=== PATIENT | male | born 1970 | race Caucasian/White ===

== ENCOUNTER 2021-11-13 21:53 | Inpatient (IN) | payer BC ==
[~2021-11-13] VITALS: Ht 170.2 cm; Wt 112.7 kg
--- NOTE | 2021-11-13 22:00 | NUR ---
Pt brought straight back to room ED1A via waiting room due to CC of CP mod to severe. Pt states he had a stent placed 2 wks ago at [facility] Addendum: 11/14/21 at 0055 by DIEGONISHCORINNE Pt immediately placed on [facility] in room ED1 and connected to bedside monitor, inital vs optained. Initial VSS, SBP slighly elevated at 142/98, 100%RA, 83bpm,16rpm. NSR without ectopy on the monitor. Normal s1s2, RRR, good distal pulses x4ext. Good metal base blocker strength. Denies sob, dizziness, n/v. No s/sxof distress present.
[2021-11-13] MEDS ORDERED: MORPHINE SULFATE 2 MG/1 ML DISP.SYRIN IV ONE (22:45)
--- NOTE | 2021-11-13 22:50 | NUR ---
CALLED [facility] DR. WILLARD PAGED.
[2021-11-13 22:54] LABS: HEMATOCRIT 37.3 % (36.7-47.1); MEAN CORPUSCULAR VOLUME 87.5 fL (73.0-96.2); PLATELET COUNT (AUTO) 420 K/uL (152-348)
[2021-11-13 22:56] LABS: CREATININE 0.9 mg/dL (0.6-1.3); POTASSIUM 4.2 mmol/L (3.5-5.1)
--- NOTE | 2021-11-13 23:00 | NUR ---
MIDLINE NURSE LUCILA BEDSIDE.
[2021-11-13] MEDS ORDERED: MORPHINE SULFATE 2 MG/1 ML DISP.SYRIN ONE (23:04)
[2021-11-13 23:07] LABS: ETHANOL < 3 MG/DL (0-0)
--- NOTE | 2021-11-13 23:15 | NUR ---
PICC nurse just completed insertion of PICC into rt upper arm without difficulty, pt tolerated well. PICC line flushes well. Pt still asking for pain medication even though he had just received a morphine injection. Pt states that the morphine worked for a short while but then the pain returned shortly there after. VSS, 116/75, 100%RA, 72bpm, 16rpm. Pt denies any sob, dizziness, n/v. Pt exhibits no outward s/sx of being in pain. no diaphoresis, no BP changes, no grimmacing. ect.
[2021-11-13 23:19] LABS: *AMPHETAMINE, URINE NEGATIVE (NEGATIVE); *CANNABINOID, URINE NEGATIVE (NEGATIVE); *COCCAINE, URINE NEGATIVE (NEGATIVE); *OPIATE, URINE NEGATIVE (NEGATIVE); *PHENCYCLIDINE SCREEN,URINE NEGATIVE (NEGATIVE)
--- NOTE | 2021-11-13 23:27 | NUR ---
Pt is resting comfortably in pos of comfort, lights turned off to reduce stimuli and allow pt to rest more easily. Pt given extra blanket and pillow per request.
[2021-11-13] MEDS ORDERED: ACETAMINOPHEN 325 MG TABLET PO PRN (23:45)
[2021-11-13] MEDS ORDERED: MAGNESIUM HYDROXIDE 30 ML LIQUID UDC PO PRN (23:45)
[2021-11-13] MEDS ORDERED: REMEDY ESSENTIAL ZINC PASTE 113 GM TP PRN (23:45)
[2021-11-13] MEDS ORDERED: IV NS 1000 ML 1,000 ML IV ONE (23:45)
[2021-11-13] MEDS ORDERED: ONDANSETRON 4 MG/2 ML VIAL IV PRN (23:45)
--- NOTE | 2021-11-13 23:46 | NUR ---
Just called tele and gave a thorough report to teleRLex Carrera RN using SBAR method. Pt is stable, VSS, PE wnl, all labs and exams WNL. EDMD states that EKG looks like that of a 18yo. bedside monitor shows NSR without ectopy, strong and equal roustabout head strength, good distal pulses x4ext. Debi BLAKE gave green light to transfer, pt will be pushed up shortly.
[2021-11-14 00:30] VITALS: BP 116/58
--- NOTE | 2021-11-14 00:30 | NUR ---
Received patient via [facility]. Admitted to tele unit, room [address] Tariq with admitting diagnosis of chest pain. Patient is AAOX4, able to make needs known. Pt walked to bed from [facility]. Unsteady and wobbly gait noted. Established nurse-patient relationship. Oriented patient to room, bed and call light button. Attached to telemonitor, showing sinus rhythm. On room air, with no complaints of SOB. Patient did complain of having severe chest pain, however, V/S and rhythm are within normal limits and patient shows no objective signs of pain. Advised patient to resort to non-pharmacological methods instead. IV access on NERIS midline, gauge 18 patent and intact, infusing 75 cc/hr of 0.9% NS. Patient belonging list done, confiscated 2 packs of cigarettes, can of tobacco and emt and placed in designated locked area. Initial physical assessment done, skin issues noted and placed in chart. ER nurse was not able to reconcile patient's home medications, will attempt to do so. Safety precautions initiated. Will continue to monitor.
--- NOTE | 2021-11-14 00:51 | NUR ---
Pt transported to room 314 via gurney, without incident. Pt walked to bed, stopping on the way to the bathroom to go #2. WORKERS COMPENSATION ADJUSTER at bedside to asist him. Pt had steady gait. no sob, VSS. Pt has good prognosis if he sticks with the plan of care. Pt placed on bed in pos of comfort. Pt asking about pain medication repeatedly, TeleRN acknowledged and will treat pain accordingly.
[2021-11-14 04:15] VITALS: BP 136/68
--- NOTE | 2021-11-14 05:42 | NUR ---
Patient slept through the night, with complaints of pain, however v/s and rhythm shows no signs of distress. Advised patient to do deep breathing and other relaxation techniques. SR on tele monitor. IVF infusing well. All needs attended to and met. Safety precautions maintained.
[2021-11-14 06:28] LABS: HEMATOCRIT 36.5 % (36.7-47.1); MEAN CORPUSCULAR HEMOGLOBIN 28.8 uug (23.8-33.4); MEAN CORPUSCULAR VOLUME 87.7 fL (73.0-96.2); PLATELET COUNT (AUTO) 438 K/uL (152-348)
--- NOTE | 2021-11-14 08:00 | NUR ---
Awake, alert, oriented x 4, not in distress. Express desire to be discharged. Seen by Dr. Helton, cleared from cardiology.
[2021-11-14 08:09] LABS: CREATININE 0.8 mg/dL (0.6-1.3); PHOSPHOROUS 4.1 mg/dL (2.5-4.9); POTASSIUM 4.2 mmol/L (3.5-5.1)
[2021-11-14] MEDS ORDERED: CLOPIDOGREL 75 MG TABLET PO SCH (09:00)
[2021-11-14] MEDS ORDERED: METOPROLOL SUCCINATE XL 25 MG TAB.SR.24H PO SCH (09:00)
[2021-11-14] MEDS ORDERED: ISOSORBIDE MONONITRATE 30 MG TAB.SR.24H PO SCH (09:00)
[2021-11-14] MEDS ORDERED: ASPIRIN 81 MG TAB.CHEW PO SCH (09:00)
[2021-11-14] MEDS ORDERED: ATOR40TA PO (09:03)
[2021-11-14] MEDS ORDERED: ASPI81TA31 PO (09:03)
[2021-11-14] MEDS ORDERED: ISOS30TA86 PO (09:03)
[2021-11-14] MEDS ORDERED: CLOP75TA33 PO (09:03)
[2021-11-14] MEDS ORDERED: METO-356 PO (09:03)
[2021-11-14 09:18] VITALS: BP 142/88
--- NOTE | 2021-11-14 10:30 | NUR ---
With discharge order. Coordinated with [facility], spoke with Brad Kerr, confirmed pharmacy, RX E prescribed. Tele removed. Midline Removed. DC instruction given to patient, verbalized understanding. Discharged per ambulatory, per patient's request, picked up by [facility].
[2021-11-14] MEDS ORDERED: ATORVASTATIN 40 MG TABLET PO SCH (21:00)
== END 2021-11-14 10:30 | disposition home or self-care (01) | DRG 303 ==
LOC: ER 21:55 → TELE3 23:45
PROVIDERS: ADMIT Family Medicine; ATTEND Nurse Practitioner Acute Care
PROC: 05H533Z Insertion of Infusion Device into Right Subclavian Vein, Percutaneous Approach (ICD-10-PCS; principal; 2021-11-13)
PROC: B546ZZA Ultrasonography of Right Subclavian Vein, Guidance (ICD-10-PCS; 2021-11-13)
DX: I25.10 Atherosclerotic heart disease of native coronary artery without angina pectoris (principal); D68.59 Other primary thrombophilia; I25.82 Chronic total occlusion of coronary artery; D75.839 Thrombocytosis, unspecified; E66.01 Morbid (severe) obesity due to excess calories; Z68.38 Body mass index [BMI] 38.0-38.9, adult; D63.8 Anemia in other chronic diseases classified elsewhere; F10.10 Alcohol abuse, uncomplicated; I10 Essential (primary) hypertension; F32.A Depression, unspecified; Z95.5 Presence of coronary angioplasty implant and graft; R07.9 Chest pain, unspecified; Z20.822 Contact with and (suspected) exposure to COVID-19
CPT/HCPCS: 36415; 70030-TC; 71045; 83735; 84100; 85025; 93005; A4663; G0378; G0480; J2270; J7030

== ENCOUNTER 2021-11-17 14:32 | Inpatient (IN) | payer BC ==
[~2021-11-17] VITALS: Ht 170.2 cm; Wt 99.8 kg
[~2021-11-17 14:32] MED LIST: ASPI81TA31 PO; ATOR40TA PO; CLOP75TA33 PO; ISOS30TA86 PO; METO-356 PO
[2021-11-17 15:27] LABS: HEMATOCRIT 37.8 % (36.7-47.1); MEAN CORPUSCULAR HEMOGLOBIN 28.9 uug (23.8-33.4); MEAN CORPUSCULAR VOLUME 89.7 fL (73.0-96.2); PLATELET COUNT (AUTO) 411 K/uL (152-348)
[2021-11-17 15:34] LABS: CARBON DIOXIDE 29 mmol/L (21-32); CHLORIDE 104 mmol/L (98-107); GLUCOSE 115 mg/dL (74-106); POTASSIUM 4.2 mmol/L (3.5-5.1); UREA NITROGEN, BLOOD 27 mg/dL (7-18)
--- NOTE | 2021-11-17 16:18 | NUR ---
PT IS IN ROOM #1B. DR WELSH EVALUATED THE PT.
[2021-11-17] MEDS: MORPHINE SULFATE 2 MG/1 ML DISP.SYRIN IV ONE ×2 (16:58→17:48)
[2021-11-17] MEDS ORDERED: MORPHINE SULFATE 2 MG/1 ML DISP.SYRIN ONE ×2 (16:59→17:53)
[2021-11-17] MEDS ORDERED: MORPHINE SULFATE 2 MG/1 ML DISP.SYRIN IV ONE (17:00)
[2021-11-17] MEDS ORDERED: ONDANSETRON 4 MG/2 ML VIAL IV ONE (19:00)
[2021-11-17] MEDS ORDERED: LORAZEPAM 0.5 MG TABLET PO ONE (19:00)
[2021-11-17] MEDS ORDERED: QUETIAPINE FUMARATE 25 MG TABLET PO ONE (19:00)
[2021-11-17] MEDS ORDERED: HYDROMORPHONE 1 MG/1 ML DISP.SYRIN IV ONE ×2 (19:00→23:20)
[2021-11-17] MEDS ORDERED: HYDROMORPHONE 1 MG/1 ML DISP.SYRIN ONE (19:10)
[2021-11-17] MEDS ORDERED: LORAZEPAM 1 MG TABLET ONE (19:10)
[2021-11-17] MEDS ORDERED: ONDANSETRON 4 MG/2 ML VIAL ONE (19:11)
[2021-11-17] MEDS ORDERED: QUETIAPINE FUMARATE 100 MG TABLET PO ONE (19:15)
--- NOTE | 2021-11-17 19:30 | NUR ---
Assumed care of patient from day shift HAYDEN Chan. Midline insertion done by HAYDEN Uriostegui #[id number] on right upper arm.
[2021-11-17] MEDS ORDERED: REMEDY ESSENTIAL ZINC PASTE 113 GM TP PRN (20:00)
[2021-11-17] MEDS ORDERED: NITROGLYCERIN 0.4 MG/TAB BOTTLE SL PRN (20:00)
[2021-11-17] MEDS ORDERED: ONDANSETRON 4 MG/2 ML VIAL IV PRN (20:00)
[2021-11-17] MEDS ORDERED: MAGNESIUM HYDROXIDE 30 ML LIQUID UDC PO PRN (20:00)
[2021-11-17] MEDS ORDERED: ACETAMINOPHEN 325 MG TABLET PO PRN (20:00)
--- NOTE | 2021-11-17 20:37 | NUR ---
Pt. admitted to Telemetry unit, Room 305, under care of Dr. Gibson. Belongs List completed. Report given to RAYNA Mathis.
--- NOTE | 2021-11-17 20:45 | NUR ---
RECEIVED PATIENT VIA W/C FROM ER. PATIENT IS A/O X4. C/O OF MILD DISCOMFORT IN CHEST. PLACED ON TELE SR. VS WNL. MID-LINE NOTED TO RIGHT UPPER ARM, INTACT AND PATENT. ORIENTED PATIENT TO ROOM AND CALL LIGHT. MRSA SWAB COLLECTED AND SENT DOWN TO LAB. CALL LIGHT IN REACH. ALL NEEDS ATTENDED. WILL CONTINUE TO MONITOR.
[2021-11-17] MEDS: ATORVASTATIN 40 MG TABLET PO SCH (21:19)
[2021-11-17 21:31] VITALS: BP 98/68
[2021-11-17] MEDS ORDERED: LORAZEPAM 1 MG TABLET PO ONE (22:15)
[2021-11-17] MEDS: MORPHINE SULFATE 2 MG/1 ML DISP.SYRIN IV PRN (22:40)
--- NOTE | 2021-11-17 22:40 | NUR ---
PATIENT C/O CHEST PAIN, ASKING FOR PAIN MEDICATION. BP 100/71. PATIENT GIVEN MS 2MG IV PER RN. WILL CONTINUE TO MONITOR AND ASSESS.
--- NOTE | 2021-11-17 23:30 | NUR ---
PATIENT AWAKE IN BED, STATING THAT THE MORPHINE DID NOT REALLY WORK AND CAN HE HAVE DILAUDID. CALLED OUT TO REEMA MEDELLIN TO NOTIFY HER IN REGARDS TO PATIENTS REQUEST. RECEIVED ORDER FOR DILAUDID 1MG X1. WENT TO NOTIFIY PATIENT THAT MD HAS ORDERED. PATIENT IN BED, ASLEEP AND SNORING. NOTIFIED REEMA MEDELLIN THAT PATIENT WAS ALREADY ASLEEP. RECEIVED ORDER TO OMIT DILAUDID ORDER.
[2021-11-18 00:01] VITALS: BP 100/71
[2021-11-18] MEDS: MORPHINE SULFATE 2 MG/1 ML DISP.SYRIN IV PRN ×5 (02:35→23:42)
[2021-11-18 04:00] VITALS: BP 112/75
[2021-11-18 07:05] LABS: HEMATOCRIT 33.8 % (36.7-47.1); MEAN CORPUSCULAR HEMOGLOBIN 29.2 uug (23.8-33.4); MEAN CORPUSCULAR VOLUME 89.6 fL (73.0-96.2); PLATELET COUNT (AUTO) 417 K/uL (152-348)
[2021-11-18 07:19] LABS: CREATININE 0.9 mg/dL (0.6-1.3); MAGNESIUM 2.2 mg/dL (1.8-2.4); PHOSPHOROUS 5.8 mg/dL (2.5-4.9); POTASSIUM 4.8 mmol/L (3.5-5.1)
[2021-11-18] MEDS: CLOPIDOGREL 75 MG TABLET PO SCH (08:44)
[2021-11-18] MEDS: ASPIRIN 81 MG TAB.CHEW PO SCH (08:44)
[2021-11-18] MEDS: METOPROLOL SUCCINATE XL 25 MG TAB.SR.24H PO SCH (08:46)
[2021-11-18] MEDS: ISOSORBIDE MONONITRATE 30 MG TAB.SR.24H PO SCH (10:03)
--- NOTE | 2021-11-18 10:54 | NUR ---
PATIENT SEEN AND EXAMINED BY DR JAMES STATED WILL SEND PATIENT FOR CTA CARDAC AT [facility] TODAY.
[2021-11-18 12:00] VITALS: BP 122/72
[2021-11-18 16:00] VITALS: BP 119/66
--- NOTE | 2021-11-18 20:00 | NUR ---
Received patient lying in bed. AAOX4. Able to make needs known. Patient frequently reports of pain, however, patient shows no signs and symptoms of acute. Suspected to be a pain medication seeker. S.R on telemonitor. On 1L O2 via NC, for comfort. IV access on NERIS midline gauge 18, patent and intact. Confiscated patient's grape picker and pack of cigarettes, secured in contraband locker. Safety precautions initiated. Will continue to monitor.
[2021-11-18 20:24] VITALS: BP 110/50
[2021-11-18] MEDS: ATORVASTATIN 40 MG TABLET PO SCH (20:41)
[2021-11-19 00:17] VITALS: BP 133/86
[2021-11-19 04:28] VITALS: BP 136/79
--- NOTE | 2021-11-19 05:52 | NUR ---
Patient slept intermittently through the night, with frequent complaints of pain, however, patient seems comfortable. Sinus rhythm on telemonitor. On 1L O2 via NC, for comfort. IV access patent and intact. Patient kept on NPO for scheduled cardiac CTA. Consent signed and attached to chart. Patient to be picked up at 9:30am. File containing patient's record ready, still need ticket for ambulance. Will endorse to dayshift.
--- NOTE | 2021-11-19 07:15 | NUR ---
RECEIVED PATIENT IN BED AWAKE ALERT AND ORIENTED NO SOB OR CHEST PAIN AT THIS TIME CALL LIGHTS AND PERSONAL BELONGINGS ARE WITHIN EASY REACH REMAIN NPO FOR SCHEDULED TEST OF CTA CARDIAC AT [facility] TODAY.WILL CONTINUE TO OBSERVE.
--- NOTE | 2021-11-19 07:45 | NUR ---
RECEIVED A CALL FROM THE [place] PROFESSOR STATED THAT THE CTA CARDIAC SCHEDULED FOR TODAY HAS BEEN CANCELLED STATED DUE TO LAC OF STAFF STATED IT HAS BEEN RESCHEDULED FOR TOMORROW AT THE SAME TIME PATIENT NOTIFIED AND HE EXPRESSED UNDERSTANDING AND REMOVED FROM NPO STATUS.
[2021-11-19] MEDS: ASPIRIN 81 MG TAB.CHEW PO SCH (08:35)
[2021-11-19] MEDS: CLOPIDOGREL 75 MG TABLET PO SCH (08:35)
[2021-11-19] MEDS: ISOSORBIDE MONONITRATE 30 MG TAB.SR.24H PO SCH (08:35)
[2021-11-19] MEDS: METOPROLOL SUCCINATE XL 25 MG TAB.SR.24H PO SCH (08:40)
[2021-11-19] MEDS: MORPHINE SULFATE 2 MG/1 ML DISP.SYRIN IV PRN (09:48)
--- NOTE | 2021-11-19 10:25 | NUR ---
PATIENT CALLED ME AND ASKED ME WHEN THE CUSTODIAL FOREMAN WILL BE HERE TO SEE HIM NOTIFIED HIM THAT WE DO NOT HAVE HIS TIMING OF THE CUSTODIAL FOREMAN VISIT AND HE STATED THAT MOST LIKELY HE WILL NOT WAIT FOR THE CUSTODIAL FOREMAN WANTS TO LEAVE AND GO HOME SO I NOTIFIED LACIE ADAMSON AND SHE STATED THAT PATIENT CAN LEAVE IF HE IS UNABLE TO WAIT FOR DR JAMES STATED WILL LET ME KNOW.
--- NOTE | 2021-11-19 11:00 | NUR ---
CALL RECEIVED FROM [facility]'S ATTORNEY [place] STATED THAT SHE ARRANGED FOR AMBULANCE DIRECTOR OF CARDIOLOGY SERVICE LINE FOR THIS PATIENT FOR TOMORROW AT 0930 TO [facility] CTA CARDIAC PATIENT NOTIFIED.
[2021-11-19 11:40] VITALS: BP 128/65
--- NOTE | 2021-11-19 13:00 | NUR ---
PATIENT LEFT THE HOSPITAL AT THIS TIME HE WAS IN SATISFACTORY CONDITION.
--- NOTE | 2021-11-19 13:00 | NUR ---
PATIENT CAME TO THE NURSES STATION AFTER HE HAS FINISHED HIS LUNCH AND STATED THAT HE WAS LEAVING NOW UNABLE TO WAIT FOR THE INVESTMENT ANALYST INFORMED HIM THAT HE WILL NEED TO SIGN THE AGAINST MEDICAL ADVICE FORM AND HE STATED THAT HE WOULD SO HE SIGNED THE FORM I REMOVED HIS MIDLINE AND NAME BAND CONFIRMED THAT HE HAS ALL HIS PERSONAL BELONGINGS STATED DID NOT WANT ANY OTHER PAPERS SO I INSTRUCTED HIM TO CALL HIS INVESTMENT ANALYST FOR A FOLLOW UP SOON POSSIBLE AND HE EXPRESSED UNDERSTANDING.
[2021-11-20] MEDS ORDERED: NITR0.4T48 SL (16:38)
[2021-11-20] MEDS ORDERED: QUET25TA PO (16:38)
== END 2021-11-19 13:00 | disposition left against medical advice (07) | DRG 303 ==
LOC: ER 14:32 → MERGE 14:32 → TELE3 20:11
PROVIDERS: ADMIT Nurse Practitioner Acute Care; ATTEND Nurse Practitioner Acute Care
PROC: 05HY33Z Insertion of Infusion Device into Upper Vein, Percutaneous Approach (ICD-10-PCS; principal; 2021-11-17)
DX: I25.10 Atherosclerotic heart disease of native coronary artery without angina pectoris (principal); D68.59 Other primary thrombophilia; I25.82 Chronic total occlusion of coronary artery; E66.01 Morbid (severe) obesity due to excess calories; Z68.34 Body mass index [BMI] 34.0-34.9, adult; F10.10 Alcohol abuse, uncomplicated; R07.89 Other chest pain; F32.A Depression, unspecified; I10 Essential (primary) hypertension; Z95.5 Presence of coronary angioplasty implant and graft; Z79.899 Other long term (current) drug therapy; D63.8 Anemia in other chronic diseases classified elsewhere; D75.839 Thrombocytosis, unspecified; R79.89 Other specified abnormal findings of blood chemistry; Z76.5 Malingerer [conscious simulation]; Z53.29 Procedure and treatment not carried out because of patient's decision for other reasons; D64.9 Anemia, unspecified
CPT/HCPCS: 36415; 71045; 83735; 84100; 84484; 85025; 93005; A4663; G0378; J1170; J2270; J2405; J7030

== ENCOUNTER 2021-11-20 15:04 | Emergency (ER) | payer BC ==
[~2021-11-20] VITALS: Ht 170.2 cm; Wt 99.8 kg
--- NOTE | 2021-11-20 15:20 | NUR ---
Dr Peralta at the bedside for MSE.
[2021-11-20] MEDS ORDERED: HYDROCODONE/APAP 5-325MG TABLET PO ONE (16:15)
[2021-11-20] MEDS ORDERED: HYDROCODONE/APAP 5-325MG TABLET ONE (16:17)
[2021-11-20 16:19] LABS: *AMPHETAMINE, URINE NEGATIVE (NEGATIVE); *CANNABINOID, URINE NEGATIVE (NEGATIVE); *COCCAINE, URINE NEGATIVE (NEGATIVE); *OPIATE, URINE POSITIVE (NEGATIVE); *PHENCYCLIDINE SCREEN,URINE NEGATIVE (NEGATIVE)
[2021-11-20] MEDS ORDERED: NITR0.4T48 SL (16:38)
[2021-11-20] MEDS ORDERED: QUET25TA PO (16:38)
--- NOTE | 2021-11-20 16:38 | NUR ---
PT HAS POOR RECOLLECTION OF ALL HIS CURRENT MEDICATIONS AND DOSAGES.
[2021-11-20 16:40] LABS: CREATININE 0.9 mg/dL (0.6-1.3); POTASSIUM 4.1 mmol/L (3.5-5.1)
[2021-11-20 16:54] LABS: BILIRUBIN,DIRECT 0.1 mg/dL (0.0-0.2); BILIRUBIN,TOTAL 0.2 mg/dL (0.2-1.0); TOTAL PROTEIN, SERUM 6.9 g/dL (6.4-8.2)
--- NOTE | 2021-11-20 16:57 | NUR ---
Pt is requesting to have Morphine for his chest pain, and stating other medications don't work. Dr Peralta aware.
[2021-11-20] MEDS ORDERED: NITROGLYCERIN OINT 1 GM PACKET TP ONE ×2 (17:00→17:14)
[2021-11-20] MEDS ORDERED: ASPIRIN 81 MG TAB.CHEW PO ONE (17:00)
--- NOTE | 2021-11-20 17:13 | NUR ---
Dr Peralta made aware of Pt's BP prior to applying Nitro Bid. Pt has no S/S of hypotension.
[2021-11-20] MEDS ORDERED: ASPIRIN 81 MG TAB.CHEW ONE (17:14)
--- NOTE | 2021-11-20 17:40 | NUR ---
Pt resting in bed, watching Tv, NAD noted.
--- NOTE | 2021-11-20 18:09 | NUR ---
Resting in bed w/ both eyes closed, NAD noted. When I walked in the room, requested morphine injection for his CP. aware.
--- NOTE | 2021-11-20 18:14 | NUR ---
Pt removed Bp cuff, monitor and pulse Ox multiple times, and states I don't want to be bothered w/ this.
[2021-11-20] MEDS ORDERED: IV NORMAL SALINE 250 ML IV ONE (18:18)
[2021-11-20] MEDS ORDERED: IOHEXOL 350 100 ML INFUS..BTL ONE (18:18)
[2021-11-20] MEDS ORDERED: SWABABLE VALVE TRANSFER SET EA MC ONE (18:18)
--- NOTE | 2021-11-20 18:43 | NUR ---
PT agreed to do CTA after speaking w/ ER MD in regard to getting Morphine/Dilaudid.
--- NOTE | 2021-11-20 18:45 | NUR ---
Pt left ER for CTA.
--- NOTE | 2021-11-20 19:20 | NUR ---
PT back from CT, walked to the bathroom w/ steady gait.
[2021-11-20 19:29] LABS: HEMATOCRIT 35.6 % (36.7-47.1); MEAN CORPUSCULAR HEMOGLOBIN 28.8 uug (23.8-33.4); MEAN CORPUSCULAR VOLUME 90.4 fL (73.0-96.2); PLATELET COUNT (AUTO) 420 K/uL (152-348)
--- NOTE | 2021-11-20 20:36 | NUR ---
IV removed. Catheter intact and site benign. Pressure and 4x4 gauze applied to site. No bleeding noted.
[2021-11-20 20:37] VITALS: BP 101/54
--- NOTE | 2021-11-20 20:39 | NUR ---
Patient discharged to home in stable condition. Written and verbal after care instructions given. Patient verbalizes understanding of instructions. Stressed follow up or return to ER for worsening s/s.
== END 2021-11-20 20:40 | disposition home or self-care (01) ==
LOC: ER 15:04
DX: R07.9 Chest pain, unspecified (principal); Z82.49 Family history of ischemic heart disease and other diseases of the circulatory system; K44.9 Diaphragmatic hernia without obstruction or gangrene; D64.9 Anemia, unspecified; D75.839 Thrombocytosis, unspecified; R79.1 Abnormal coagulation profile; Z79.02 Long term (current) use of antithrombotics/antiplatelets; Z79.899 Other long term (current) drug therapy; F10.11 Alcohol abuse, in remission; Z88.6 Allergy status to analgesic agent; I25.2 Old myocardial infarction; I25.10 Atherosclerotic heart disease of native coronary artery without angina pectoris; Z95.5 Presence of coronary angioplasty implant and graft
CPT/HCPCS: 36415; 71045; 71275; 80048; 80076; 80307; 83880; 84484 ×2; 85025; 85379; 85730; 93005 ×2; 99285; Q9967; A4663; J7050

== ENCOUNTER 2021-11-22 15:18 | Emergency (ER) | payer BC ==
[~2021-11-22] VITALS: Ht 172.7 cm; Wt 104.3 kg
[~2021-11-22 15:18] MED LIST changes: +NITR0.4T48 SL; +QUET25TA PO
--- NOTE | 2021-11-22 15:36 | NUR ---
PT IS IN ROOM #2B. DR SOLIS EVALUATED THE PT.
[2021-11-22] MEDS ORDERED: ASPIRIN 81 MG TAB.CHEW PO ONE (15:45)
[2021-11-22] MEDS ORDERED: NITROGLYCERIN 0.4 MG/TAB BOTTLE SL ONE ×2 (15:45→16:09)
[2021-11-22] MEDS ORDERED: IV NORMAL SALINE 1000 ML BAG IV ONE (15:45)
[2021-11-22 16:08] VITALS: BP 126/69
[2021-11-22] MEDS ORDERED: ASPIRIN 81 MG TAB.CHEW ONE (16:09)
[2021-11-22 16:11] LABS: CREATININE 1.2 mg/dL (0.6-1.3); MEAN CORPUSCULAR HEMOGLOBIN 29.4 uug (23.8-33.4); MEAN CORPUSCULAR VOLUME 89.1 fL (73.0-96.2); PLATELET COUNT (AUTO) 402 K/uL (152-348)
[2021-11-22 16:25] LABS: BILIRUBIN,DIRECT 0.1 mg/dL (0.0-0.2); BILIRUBIN,TOTAL 0.3 mg/dL (0.2-1.0); TOTAL PROTEIN, SERUM 6.6 g/dL (6.4-8.2)
--- NOTE | 2021-11-22 18:21 | NUR ---
DAKOTA FLORENTINO FROM [facility]. DR SOLIS NOTIFIED.
== END 2021-11-22 18:23 | disposition left against medical advice (07) ==
LOC: ER 15:24
DX: R07.9 Chest pain, unspecified (principal); I10 Essential (primary) hypertension; R94.31 Abnormal electrocardiogram [ECG] [EKG]; I25.10 Atherosclerotic heart disease of native coronary artery without angina pectoris; Z95.5 Presence of coronary angioplasty implant and graft; I25.2 Old myocardial infarction; Z79.02 Long term (current) use of antithrombotics/antiplatelets; Z79.82 Long term (current) use of aspirin; Z79.899 Other long term (current) drug therapy; Z88.6 Allergy status to analgesic agent; F32.A Depression, unspecified; F41.9 Anxiety disorder, unspecified; E66.01 Morbid (severe) obesity due to excess calories; Z68.35 Body mass index [BMI] 35.0-35.9, adult
CPT/HCPCS: 36415; 71045; 84484; 85025; 93005; A4663; J7030